=== PATIENT | male | born 1970 | race Two or more races ===

== ENCOUNTER 2019-11-02 05:20 | Day surgery (SDC) | payer OTHER | END 2019-11-02 09:20 | disposition home or self-care (01) | LOC: AMB-ENDOS 05:20 | PROVIDERS: ATTEND Surgery | DX: K29.50 Unspecified chronic gastritis without bleeding (principal); K44.9 Diaphragmatic hernia without obstruction or gangrene; Z20.828 Contact with and (suspected) exposure to other viral communicable diseases ==